=== PATIENT | female | born 1940 | race Caucasian/White ===

== ENCOUNTER → 2025-03-11 | Outpatient (CLI) | payer MEDICARE, BC, SELFPAY ==
--- NOTE | 2025-03-11 09:59 | XR_ITS ---
Examination: AP lateral chest 2 views TECHNIQUE: AP lateral chest 2 views upright Date and time: March 11, 2025 1012 hours Comparison February 10, 2024 INDICATIONS: Patient fell 3 weeks ago with injury of the chest, chest pain FINDINGS: Mild prominence left ventricle No pneumothorax Prominent osteopenia Clavicles and ribs appear intact Multiple chronic osteoporotic compressions dorsal vertebral bodies IMPRESSION: No pneumothorax
[2025-03-11 11:21] LABS: Basophils # (Auto) 0.1 Thou/mm3 (0.0-0.2); Basophils % (Auto) 1 % (0-2.5); Eosinophils # (Auto) 0.3 Thou/mm3 (0.0-0.5); Eosinophils % (Auto) 5 % (0-10); Hematocrit 36.9 % (36.0-46.0); Hemoglobin 12.5 g/dL (12.0-16.0); Immature Granulocytes % (Auto) 0 % (0-0); Immature Granulocytes Auto 0.02 Thou/mm3 (0.00-0.00); Lymphocytes # (Auto) 1.3 Thou/mm3 (1.0-4.8); Lymphocytes % (Auto) 24 % (10-50); Mean Corpuscular HGB Conc 33.9 g/dl (31.0-37.0); Mean Corpuscular Hemoglobin 32.9 pg (25.0-35.0); Mean Corpuscular Volume 97 fL (80-100); Monocytes # (Auto) 0.7 Thou/mm3 (0.0-0.8); Monocytes % (Auto) 12 % (0-12); Neutrophils # (Auto) 3.3 Thou/mm3 (1.8-7.7); Neutrophils % (Auto) 58 % (37-80); Nucleated Red Blood Cell % 0 /100 WBC (0); Platelet Count 290 Thou/mm3 (140-440); RDW Standard Deviation 53.7 fL (36.4-46.3); White Blood Count 5.7 Thou/mm3 (3.6-11.0)
[2025-03-11 11:37] LABS: Alanine Aminotransferase 17 U/L (10-49); Albumin, Serum 4.1 gm/dL (3.4-4.8); Albumin/Globulin Ratio 1.7 (1.2-2.2); Alkaline Phosphatase 99 U/L (46-116); Anion Gap 12 (7-16); Aspartate Amino Transferase 28 U/L (0-34); BUN/Creatinine Ratio 17 Ratio (12-20); Bilirubin,Total 0.5 mg/dL (0.3-1.2); Blood Urea Nitrogen 38 mg/dL (9-23); Calcium 9.5 mg/dL (8.3-10.6); Calcium (Corrected) 9.5 mg/dL (8.5-10.1); Carbon Dioxide 23.3 mMol/L (20.0-31.0); Cardiac Risk Estimate 3.7 RATIO (3.7-5.6); Chloride 108 mMol/L (98-107); Cholesterol 196 mg/dL (132-200); Creatinine (Component) 2.3 mg/dL (0.6-1.3); Globulin 2.4 gm/dL (2.3-3.5); Glucose 115 mg/dL (74-106); HDL Cholesterol 53 mg/dL (40-60); LDL Cholesterol,Calculated 97 mg/dL (0-130); Osmolality,Calculated 294 (275-295); Sodium 143 mMol/L (136-145); Thyroid Stimulating Hormone 3.62 uIU/mL (0.55-4.78); Total Protein 6.5 gm/dL (5.7-8.2); Triglycerides 229 mg/dL (30-150); eGFR 20 See Note
== END | disposition home or self-care (01) ==
LOC: COPL 09:39
PROVIDERS: PCP Family Medicine; Referring Provider Family Medicine; Visit Provider Family Medicine
DX: I25.10 Atherosclerotic heart disease of native coronary artery without angina pectoris (principal); R07.89 Other chest pain
CPT/HCPCS: 36415; 71046; 80053; 80061; 84443; 85025

== ENCOUNTER → 2025-05-03 | Outpatient (CLI) | payer MEDICARE, BC, SELFPAY ==
[2025-05-03 08:37] LABS: Collection Type, Urine Clean Catch
[2025-05-03 09:09] LABS: Bilirubin,Urine Negative (Negative); Blood,Urine Negative (Negative); Clarity,Urine Clear (Clear/Hazy); Color,Urine Lt-Yellow (Lt Yel-Yel); Glucose, Urine Negative (Negative); Ketones,Urine Negative (Negative); Leukocyte Esterase,Urine Positive (Negative); Nitrite,Urine Negative (Negative); PH,Urine 6.0 (5.0-7.0); Protein,Urine Negative (Neg - Trace); RBC,Urine 1 /hpf (0-3); Specific Gravity,Urine 1.016 (1.001-1.035); Squamous Epithelial Cell,Urine 1 /hpf (0-5); Urobilinogen,Urine Negative mg/dL (0.0-1.0); WBC,Urine 4 /hpf (0-5)
[2025-05-03 09:19] LABS: Anion Gap 11 (7-16); BUN/Creatinine Ratio 17 Ratio (12-20); Blood Urea Nitrogen 31 mg/dL (9-23); Calcium 10.0 mg/dL (8.3-10.6); Carbon Dioxide 26.7 mMol/L (20.0-31.0); Chloride 105 mMol/L (98-107); Creatinine (Component) 1.8 mg/dL (0.6-1.3); Glucose 100 mg/dL (74-106); Osmolality,Calculated 291 (275-295); Potassium 4.6 mMol/L (3.4-5.1); Sodium 143 mMol/L (136-145); Uric Acid 7.2 mg/dL (3.1-7.8); eGFR 27 See Note
== END | disposition home or self-care (01) ==
LOC: COPL 06:59
PROVIDERS: PCP Family Medicine; Referring Provider Family Medicine; Visit Provider Family Medicine
DX: N18.4 Chronic kidney disease, stage 4 (severe) (principal)
CPT/HCPCS: 36415; 80048; 81001; 84550

== ENCOUNTER → 2025-06-14 | Outpatient (CLI) | payer MEDICARE, BC, SELFPAY ==
[2025-06-14 08:52] LABS: Anion Gap 10 (7-16); BUN/Creatinine Ratio 17 Ratio (12-20); Blood Urea Nitrogen 33 mg/dL (9-23); Calcium 10.1 mg/dL (8.3-10.6); Carbon Dioxide 27.4 mMol/L (20.0-31.0); Chloride 107 mMol/L (98-107); Creatinine (Component) 1.9 mg/dL (0.6-1.3); Glucose 97 mg/dL (74-106); Osmolality,Calculated 294 (275-295); Potassium 5.1 mMol/L (3.4-5.1); Sodium 144 mMol/L (136-145); eGFR 26 See Note
== END | disposition home or self-care (01) ==
LOC: COPL 07:21
PROVIDERS: PCP Family Medicine; Referring Provider Family Medicine; Visit Provider Family Medicine
DX: N18.4 Chronic kidney disease, stage 4 (severe) (principal)
CPT/HCPCS: 36415; 80048

== ENCOUNTER → 2025-08-24 | Outpatient (CLI) | payer MEDICARE, BC, SELFPAY ==
[2025-08-24 08:40] LABS: Basophils # (Auto) 0.1 Thou/mm3 (0.0-0.2); Basophils % (Auto) 1 % (0-2.5); Eosinophils # (Auto) 0.3 Thou/mm3 (0.0-0.5); Eosinophils % (Auto) 4 % (0-10); Hematocrit 37.7 % (36.0-46.0); Hemoglobin 12.1 g/dL (12.0-16.0); Immature Granulocytes Auto 0.02 Thou/mm3 (0.00-0.00); Lymphocytes # (Auto) 1.1 Thou/mm3 (1.0-4.8); Lymphocytes % (Auto) 14 % (10-50); Mean Corpuscular HGB Conc 32.1 g/dl (31.0-37.0); Mean Corpuscular Hemoglobin 32.6 pg (25.0-35.0); Mean Corpuscular Volume 102 fL (80-100); Monocytes # (Auto) 0.8 Thou/mm3 (0.0-0.8); Monocytes % (Auto) 11 % (0-12); Neutrophils # (Auto) 5.2 Thou/mm3 (1.8-7.7); Neutrophils % (Auto) 69 % (37-80); Nucleated Red Blood Cell # 0.00 Thou/mm3 (0.00-0.00); Nucleated Red Blood Cell % 0 /100 WBC (0); Platelet Count 276 Thou/mm3 (140-440); RDW Standard Deviation 53.3 fL (36.4-46.3); Red Blood Count 3.71 Miln/mm3 (4.00-5.20); White Blood Count 7.6 Thou/mm3 (3.6-11.0)
[2025-08-24 09:19] LABS: Anion Gap 9 (7-16); BUN/Creatinine Ratio 19 Ratio (12-20); Blood Urea Nitrogen 25 mg/dL (9-23); Calcium 9.3 mg/dL (8.3-10.6); Carbon Dioxide 29.9 mMol/L (20.0-31.0); Chloride 106 mMol/L (98-107); Creatinine (Component) 1.3 mg/dL (0.6-1.3); Glucose 96 mg/dL (74-106); Osmolality,Calculated 293 (275-295); Potassium 4.6 mMol/L (3.4-5.1); Sodium 145 mMol/L (136-145); eGFR 40 See Note
== END | disposition home or self-care (01) ==
LOC: COPL 08:01
PROVIDERS: PCP Family Medicine; Referring Provider Family Medicine; Visit Provider Family Medicine
DX: N18.4 Chronic kidney disease, stage 4 (severe) (principal)
CPT/HCPCS: 36415; 80048; 85025

== ENCOUNTER 2025-09-09 11:25 | Emergency (ER) | payer MEDICARE, BC, SELFPAY ==
[2025-09-09] VITALS (11 sets, daily range): BP systolic 121–154; BP diastolic 67–90; PULSE 67–92; RESP 17–85; TEMP 36.4–37.1; O2SAT 95–99; BMI 18.5
--- NOTE | 2025-09-09 11:29 | XR_ITS ---
EXAMINATION: AP chest single view TECHNIQUE: AP portable semiupright chest single view Date and time: September 09, 2025, 1155 hours INDICATIONS: Patient fell last week with right hip pain FINDINGS: Mild enlargement cardiac contour Moderate vascular congestion Focal lung opacity in the right midlung Significant osteopenia IMPRESSION: Focal opacity in the right midlung which may represent pneumonia, follow-up imaging is recommended to document clearing
--- NOTE | 2025-09-09 11:31 | EKG_ITS ---
[facility] Test Date: 2025-09-09 Pat Name: ELMO SHINE Department: Room: - Gender: Female First Aid Officer: : 1940 Requested By: Marialuisa Heller Order Number: [id number] Reading MD: Marialuisa Heller Measurements Intervals Evans Rate: 70 P: IL: QRS: 26 QRSD: 90 T: 84 QT: 400 QTc: 434 Interpretive Statements ATRIAL FIBRILLATION POSSIBLE RIGHT VENTRICULAR CONDUCTION DELAY [RSR (QR) IN V1/V2] NONSPECIFIC ST & T-WAVE ABNORMALITY ABNORMAL RHYTHM ECG Compared to ECG 08/06/2024 09:33:50 T-wave abnormality now present Sinus rhythm no longer present ST (T wave) deviation no longer present /store/S0/[id number]/ecg/[id number].pdf
--- NOTE | 2025-09-09 11:34 | PD.EDFALL ---
ED Fall Injury RME/HPI General Chief Complaint: Hip Injury/Pain Stated Complaint: HIP PAIN AFTER GROUND LEVEL FALL Time Seen by Provider: 09/09/25 11:29 Arrival date/time: 09/09/25 11:25 Limitations: no limitations RME / HPI RME / HPI Narrative: 85 year old female with history of angina, hypertension, hyperlipidemia, DVT on Eliquis, COPD presents to the ED BIBA from home for evaluation of right hip pain after fall 1 week ago. The right hip pain described as aching in sensation that is aggravated with movements, ambulating, or bearing weight. States at home she has been able to get around with assistance of a walker though reports it has been very painful and difficult. During her fall 1 week ago states she did bump her head. Has not had any headache or other complaints. Related Data Home Medications ?Medication ?Instructions ?Recorded ?Confirmed atorvastatin 20 mg tablet 20 mg PO QDAY 10/07/19 08/09/24 fluticasone fur. 100 mcg-umeclid 1 inh inhalation QDAY 10/07/19 08/09/24 62.5 mcg-vilant 25 mcg inhalat.powder (Trelegy Ellipta) valsartan 160 1 tab PO QDAY 10/07/19 08/09/24 mg-hydrochlorothiazide 25 mg tablet apixaban 2.5 mg tablet (Eliquis) 2.5 mg PO BID 08/09/24 08/09/24 Held on 08/09/24. Instructions: Resume on 08/11/24. aspirin 81 mg tablet 81 mg PO QDAY 08/09/24 08/09/24 famotidine 40 mg tablet 40 mg PO QDAY 08/09/24 08/09/24 metoprolol succinate 100 mg 100 mg PO QDAY 08/09/24 08/09/24 tablet,extended release 24 hr Allergies Allergy/AdvReac Type Severity Reaction Status Date / Time Sulfa (Sulfonamide Allergy Unknown Verified 06/16/23 02:52 Antibiotics) Penicillins Allergy Rash Verified 10/07/19 09:14 Review of Systems Review of Systems Systems Reviewed: All systems reviewed, normal except as documented Past Medical History Past Medical History CARDIAC: Positive Hypercholesterolemia, Valvular Heart Disease (valve replacement) and Hypertension RESPIRATORY: Positive Chronic Obstructive Pulmonary Disease (COPD) and Bronchitis GASTROINTESTINAL: Positive Gastroesophageal Reflux Disease MUSCULOSKELETAL: Positive Arthritis and Fractures (back fx, right arm, right wrist) ENT: Positive History of ENT Problems (wears glasses) and Cataracts OTHER HISTORY: Positive Falls and Blood Transfusions Surgical History SURGICAL: Positive Cardiac Surgery (aortobifemoral bypass), Open Heart Surgery, Valve Replacement, Eye Surgery and Hysterectomy Social History SMOKING STATUS: Former smoker ED Exam General Limitations: Present no limitations General appearance: Present alert and in no apparent distress Head Head exam: Present atraumatic, normocephalic and normal inspection Eye Eye exam: Present normal appearance, PERRL and EOMI ENT ENT exam: Present normal exam, normal oropharynx and mucous membranes moist Neck Neck exam: Present normal inspection, full ROM and trachea midline Chest Chest inspection: Present normal inspection and symmetric chest wall rise Respiratory Respiratory exam: Present normal lung sounds bilaterally Cardiovascular Cardiovascular exam: Present regular rate, normal rhythm and normal heart sounds Abdominal Exam Abdominal exam: Present soft and normal bowel sounds Extremities Exam Extremities exam: Present full ROM and other (tenderness to the right hip anteriorly and lateraly, also tender with rotation, no shortening ) Back Exam Back exam: Present normal inspection and full ROM Neurological Exam Neurological exam: Present alert, oriented X3 and CN II-XII intact Psychiatric Psychiatric exam: Present normal affect and normal mood Skin Skin exam: Present warm, dry, intact and normal color Course Quality Measures none Orders Category Date Time Status Nursery Hand Q4H START 00 Care 09/09/25 12:34 Active EKG (ED ONLY) *Do not use* NOW Care 09/09/25 11:31 Completed MRI Screening NOW Care 09/09/25 22:33 Active Saline [Insert IV] NOW Care 09/09/25 18:[address] head/brain wo con Stat Exams 09/09/25 11:[address] hip RT wo con Stat Exams 09/09/25 16:30 Completed CXRP [XR chest 1V portable] Stat Exams 09/09/25 11:29 Completed EKG (ED Only) Stat Exams 09/09/25 11:31 Draft MR hip RT wo con Stat Exams 09/10/25 Ordered XR hip RT w pelvis 2-3V Stat Exams 09/09/25 12:10 Completed BNP [B-Type Natriuretic Peptide] Stat Lab 09/09/25 12:20 Completed CBC [CBC] Stat Lab 09/09/25 12:20 Completed CMP [Comprehensive Metabolic Panel] Stat Lab 09/09/25 12:20 Completed D-Dimer Stat Lab 09/09/25 12:20 Completed INR [Prothrombin Time with INR] Stat Lab 09/09/25 12:20 Completed Troponin I Stat Lab 09/09/25 12:20 Completed Troponin I Stat Lab 09/09/25 18:36 Completed UA [Urinalysis] Stat Lab 09/09/25 14:05 Completed Azithromycin Po [Zithromax PO] Med 09/09/25 18:35 Discontinued 500 mg PO X1 ONE Furosemide Inj [Lasix Inj] Med 09/09/25 18:35 Discontinued 20 mg IVP X1 ONE Morphine* Inj Med 09/09/25 11:31 Active 4 mg IVP Q1H PRN Nitroglycerin Oint 2% [Nitro-paste Oint 2%] Med 09/09/25 18:35 Discontinued 1 inch TOP X1 ONE Sodium Chloride 0.9% 500 ml [Ns] 500 ml Med 09/09/25 11:32 Discontinued IV 500 mls/hr cefTRIAXone/D5w 1gm IV premix [Rocephin/D5w 1gm IV Med 09/09/25 18:35 Discontinued premix] 1 gm in 50 ml IV X1 Oxygen Delivery NOW RT 09/09/25 12:34 Active Vital Signs Vital signs: Vital Signs Temperature 98.5 F 09/09/25 12:23 Pulse Rate 71 09/09/25 12:23 Respiratory Rate 22 H 09/09/25 12:23 Blood Pressure 150/80 H 09/09/25 12:23 Pulse Oximetry (%) 97 09/09/25 12:23 Oxygen Delivery Method Room Air 09/09/25 12:23 Pulse ox is 97% on room air which is adequate. Fall MDM Narrative MDM Narrative:: Cassy Meyer am scribing for and in the presence of Dr. Bennett. 85 year old female with history of angina, hypertension, hyperlipidemia, DVT on Eliquis, COPD presents to the ED BIBA from home for evaluation of right hip pain after fall 1 week ago. The right hip pain described as aching in sensation that is aggravated with movements, ambulating, or bearing weight. States at home she has been able to get around with assistance of a walker though reports it has been very painful and difficult. During her fall 1 week ago states she did bump her head. Has not had any headache or other complaints. Assessment: Ground level fall 1 week ago Atrial fibrillation, rule out cardiac cause for the fall Right hip pain, rule out fracture Plan: Head CT Hip Xrays Labs, cardiac work-up The patients head CT, chest xray are negative. The hip xray is suspicious for intertrochanteric fracture. The CT hip is pending. Labs show elevated troponin and BNP, which is the probable cause of fall. Patient will need admission for cardiac work up. 1800p: Care signed out to Dr. Lombardo pending CT of the hip and final disposition. Patient data External records reviewed:: [facility] previous records and EMS form Clinical information provided by:: patient and EMS Social determinants that could affect healthcare access:: none Patient has the following chronic illnesses:: angina, hypertension, hyperlipidemia, DVT on Eliquis, COPD How is presenting disease/condition affected by chronic disease/condition?: exacerbated by Evaluation data The following diagnostics were reviewed and interpreted by me:: lab results, radiology exam(s) and EKG tracing(s) (EKG @ 12:41 pm, interpreted by me, atrial fibrillation, rate 70, no STEMI. ) Lab and/or radiology exams considered but not ordered:: None Interpretation Summary: Ordering Physician: Marialuisa Heller MD Date of Service: 09/09/25 Procedure(s): XR chest 1V portable Accession Number(s): [id number] cc: Marialuisa Heller MD; Gustavo Mendoza MD~ EXAMINATION: AP chest single view TECHNIQUE: AP portable semiupright chest single view Date and time: September 09, 2025, 1155 hours INDICATIONS: Patient fell last week with right hip pain FINDINGS: Mild enlargement cardiac contour Moderate vascular congestion Focal lung opacity in the right midlung Significant osteopenia IMPRESSION: Focal opacity in the right midlung which may represent pneumonia, follow-up imaging is recommended to document clearing Dictated By: Gustavo Mendoza MD Signed By: <Electronically signed by Gustavo Mendoza MD in OV> 09/09/25 1347 Ordering Physician: Marialuisa Heller MD Date of Service: 09/09/25 Procedure(s): CT head/brain wo con Accession Number(s): [id number] cc: Marialuisa Heller MD; Gustavo Mendoza MD~ Examination: CT brain head without contrast. 2-D sagittal coronal reconstructions Date and time of exam: September 01, 2025, 1143 hours INDICATIONS: Patient fell today with injury to the head, head pain CTDI: vol (mGy): 44.5 DLP: (mGycm): 959 Technique: Multiple CT axial sections of the brain have been obtained, 5 mm slice thickness. Contrast has not been administered. 2-D sagittal, coronal reconstructions have been obtained Low dose protocols were performed. One or more of the following dose reduction techniques were used; automated exposure control, adjustment of the mA and/or KV according to patient size, use of iterative reconstruction technique. Findings: No significant ventricular enlargement. Intra-axial or extra-axial hemorrhage density is not seen. No mass effect or midline shift Basal cisterns are not remarkable. Fourth ventricle is midline. Cranial vault intact. Impression: Negative for acute hemorrhage, mass effect or midline shift Dictated By: Gustavo Mendoza MD Signed By: <Electronically signed by Gustavo Mendoza MD in OV> 09/09/25 1155 Ordering Physician: Marialuisa Heller MD Date of Service: 09/09/25 Procedure(s): XR hip RT w pelvis 2-3V Accession Number(s): [id number] cc: Marialuisa Heller MD; Gustavo Mendoza MD~ Examination: Right hip AP, lateral, AP pelvis 3 views Technique: Hip AP lateral, AP pelvis, 3 views Exam date and time: September 01, 2025, 1148 hours INDICATIONS: Patient fell last week with injury of the right hip, right hip pain. FINDINGS: Severe osteopenia Suspicious for fractures through the greater trochanter and likely intertrochanteric region right hip Left hip bones of the pelvis intact IMPRESSION: Recommend CT scan right hip follow-up to exclude right hip fracture. Dictated By: Gustavo Mendoza MD Signed By: <Electronically signed by Gustavo Mendoza MD in OV> 09/09/25 1346 Medications / Prescriptions Medications or Prescriptions considered but not ordered:: None Medication administrations:: Medication Administration History Morphine Sulfate (Morphine Sulf Inj 4 Mg/Ml Vial) 4 mg IVP Q1H PRN PRN Reason: Angina Discontinued Medications Azithromycin (Azithromycin 250 Mg Tablet) 500 mg PO X1 ONE Stop: 09/09/25 18:36 Last Admin: 09/09/25 19:31 Dose: 500 mg Documented By: DANIEL Furosemide (Furosemide Inj 10 Mg/Ml 4ml Vial) 20 mg IVP X1 ONE Stop: 09/09/25 18:36 Last Admin: 09/09/25 19:50 Dose: 20 mg Documented By: DANIEL Sodium Chloride (Ns) 500 mls @ 500 mls/hr IV .Q1H ONE Stop: 09/09/25 12:31 Last Infusion: 09/09/25 13:16 Dose: Infused Documented By: Admin: 09/09/25 12:26 Dose: 500 mls/hr Documented By: JACKELIN Ceftriaxone Sodium/Dextrose (Rocephin/D5w 1gm Iv Premix) 1 gm in 50 mls @ 100 mls/hr IV X1 ONE Stop: 09/09/25 19:04 Last Infusion: 09/09/25 20:01 Dose: Infused Documented By: Admin: 09/09/25 19:31 Dose: 100 mls/hr Documented By: DANIEL Nitroglycerin (Nitroglycerin Oint 2% 1 Inch Packet) 1 inch TOP X1 ONE Stop: 09/09/25 18:36 Last Admin: 09/09/25 19:50 Dose: 1 inch Documented By: DANIEL See above Consultations Consultation(s) initiated? (list below): No Diagnosis Fall Differential Diagnosis: syncope Most likely diagnosis given after review of the tests above:: Elevated troponin Right hip pain Admission Indicated Admission indicated?: not indicated Explain why admission is indicated or not indicated:: Signed out pending CT Admission Request Was there a request for admission?: No Disposition Plan Disposition Plan: other (specify) (Signed out to Dr. Lombardo) Discharge Plan Prescriptions/Referrals Prescriptions/Med Rec: No Action atorvastatin 20 mg Tablet 20 mg PO QDAY valsartan-hydrochlorothiazide 160-25 mg Tablet 1 tab PO QDAY Trelegy Ellipta 100-62.5-25 mcg Blister With Device 1 inh INHALATION QDAY famotidine 40 mg Tablet 40 mg PO QDAY metoprolol succinate 100 mg Tablet Extended Release 24 Hr 100 mg PO QDAY aspirin 81 mg Tablet 81 mg PO QDAY Eliquis 2.5 mg Tablet 2.5 mg PO BID Referrals: Beverly Nichols MD [Primary Care Provider, Family Practice] - In 1 week Problem List Clinical Impression: Fracture of right hip, Pneumonia, CHF (congestive heart failure) Patient/Caregiver Discharge Instructions Print Language: Croatian
--- NOTE | 2025-09-09 12:10 | XR_ITS ---
Examination: Right hip AP, lateral, AP pelvis 3 views Technique: Hip AP lateral, AP pelvis, 3 views Exam date and time: September 01, 2025, 1148 hours INDICATIONS: Patient fell last week with injury of the right hip, right hip pain. FINDINGS: Severe osteopenia Suspicious for fractures through the greater trochanter and likely intertrochanteric region right hip Left hip bones of the pelvis intact IMPRESSION: Recommend CT scan right hip follow-up to exclude right hip fracture.
[2025-09-09] MEDS: SODIUM CHLORIDE 0.9% 500 ML 500 ML IV (12:26)
[2025-09-09 13:07] LABS: Basophils # (Auto) 0.1 Thou/mm3 (0.0-0.2); Basophils % (Auto) 1 % (0-2.5); Eosinophils # (Auto) 0.2 Thou/mm3 (0.0-0.5); Eosinophils % (Auto) 3 % (0-10); Hematocrit 40.6 % (36.0-46.0); Hemoglobin 12.9 g/dL (12.0-16.0); Immature Granulocytes Auto 0.02 Thou/mm3 (0.00-0.00); Lymphocytes # (Auto) 0.8 Thou/mm3 (1.0-4.8); Lymphocytes % (Auto) 11 % (10-50); Mean Corpuscular HGB Conc 31.8 g/dl (31.0-37.0); Mean Corpuscular Hemoglobin 32.3 pg (25.0-35.0); Mean Corpuscular Volume 102 fL (80-100); Monocytes # (Auto) 0.7 Thou/mm3 (0.0-0.8); Monocytes % (Auto) 10 % (0-12); Neutrophils # (Auto) 5.4 Thou/mm3 (1.8-7.7); Neutrophils % (Auto) 75 % (37-80); Nucleated Red Blood Cell # 0.00 Thou/mm3 (0.00-0.00); Nucleated Red Blood Cell % 0 /100 WBC (0); Platelet Count 335 Thou/mm3 (140-440); RDW Standard Deviation 50.4 fL (36.4-46.3); Red Blood Count 3.99 Miln/mm3 (4.00-5.20); White Blood Count 7.2 Thou/mm3 (3.6-11.0)
[2025-09-09 13:17] LABS: D-Dimer 2400 ng/mL (<600)
[2025-09-09 13:22] LABS: INR 1.2 (0.9-1.3); Prothrombin Time 12.4 Seconds (9.0-12.2)
[2025-09-09 13:29] LABS: B-Type Natriuretic Peptide 888 pg/mL (0-100)
[2025-09-09 13:35] LABS: Alanine Aminotransferase 10 U/L (10-49); Albumin, Serum 4.1 gm/dL (3.4-4.8); Albumin/Globulin Ratio 1.4 (1.2-2.2); Alkaline Phosphatase 131 U/L (46-116); Anion Gap 9 (7-16); Aspartate Amino Transferase 23 U/L (0-34); BUN/Creatinine Ratio 14 Ratio (12-20); Bilirubin,Total 0.5 mg/dL (0.3-1.2); Blood Urea Nitrogen 27 mg/dL (9-23); Calcium 9.3 mg/dL (8.3-10.6); Calcium (Corrected) 9.3 mg/dL (8.5-10.1); Carbon Dioxide 27.2 mMol/L (20.0-31.0); Chloride 106 mMol/L (98-107); Creatinine (Component) 1.9 mg/dL (0.6-1.3); Estimated Creatinine Clearance 14.7 mL/min (>60); Globulin 3.0 gm/dL (2.3-3.5); Glucose 113 mg/dL (74-106); Osmolality,Calculated 289 (275-295); Potassium 4.4 mMol/L (3.4-5.1); Sodium 142 mMol/L (136-145); Total Protein 7.1 gm/dL (5.7-8.2); eGFR 26 See Note
[2025-09-09 13:38] LABS: Troponin I 0.053 ng/mL (0.0-0.045)
[2025-09-09 14:19] LABS: Collection Type, Urine Clean Catch
[2025-09-09 14:35] LABS: Bilirubin,Urine Negative (Negative); Blood,Urine Negative (Negative); Clarity,Urine Clear (Clear/Hazy); Color,Urine Lt-Yellow (Lt Yel-Yel); Glucose, Urine Negative (Negative); Ketones,Urine Negative (Negative); Leukocyte Esterase,Urine Negative (Negative); Nitrite,Urine Negative (Negative); PH,Urine 7.0 (5.0-7.0); Protein,Urine Negative (Neg - Trace); RBC,Urine < 1 /hpf (0-3); Specific Gravity,Urine 1.012 (1.001-1.035); Squamous Epithelial Cell,Urine < 1 /hpf (0-5); Urobilinogen,Urine Negative mg/dL (0.0-1.0); WBC,Urine < 1 /hpf (0-5)
--- NOTE | 2025-09-09 16:30 | XR_ITS ---
Examination: CT right hip, without contrast. 2-D sagittal reconstructions. 2-D coronal reconstructions. 3-D reconstructions. Date and time of exam: September 01, 2025, 1758 hours INDICATION: Patient fell today with injury of the right hip, right hip pain CTDI: vol (mGy): 5.07 DLP: (mGycm): 174 Technique: Multiple 1.25 mm axial sections of the pelvis right hip have been obtained. 2-D sagittal and coronal reconstructions have been obtained. 3-D reconstructions have been obtained. Low dose protocols were performed. One or more of the following dose reduction techniques were used; automated exposure control, adjustment of the mA and/or KV according to patient size, use of iterative reconstruction technique. Findings: Acute fractures greater trochanter right hip No definite fracture lines extending through the intertrochanteric region No hip dislocation Bones of the pelvis left hip intact No pelvic hematoma IMPRESSION: Acute fracture greater trochanter right hip Incidental note dilated gallbladder and distal common bile duct, recommend hepatobiliary sonography follow-up As clinically warranted, MRI hip follow-up would best assess and exclude extension of the greater trochanter fracture extending into the intertrochanteric region
--- NOTE | 2025-09-09 18:30 | EDNOTE_ITS ---
Emergency Room Addendum Addendum Narrative: I took over the care from previous shift physician at 6 PM on 09/09/2025. See previous notes for complete H & P and ED course. I reviewed all diagnostic test results. My interpretation of the EKG is atrial fibrillation (70 bpm). My interpretation of the chest x-ray is opacity and increased vascular congestion. My interpretation of the right hip x-rays is equivocal for fracture. My review of the head CT report is NAD. My review of the right hip CT report is: Acute, nondisplaced fracture of the posterosuperior aspect of the right greater trochanter. Blood tests and urine tests remarkable for BNP 888, Cr 1.9, troponin 0.053, D- dimer 2400. Diagnoses include: Right hip fracture Pneumonia CHF Treatment here from me included: Rocephin 1 g IV Zithromax 500 mg PO Lasix 20 mg IV Topical NTG I discussed the case with [facility] orthopedic surgeon (Dr. Ortiz). About the presentation and exam and diagnostics and treatments here. And possible need of further care there. Recommended MRI of the right hip. If the fracture is isolated at greater trochanter, transfer is not indicated because surgery not necessary. At 6 AM on 09/10/2025, the care of the patient was transferred to Dr. Bennett. Osmani Lombardo MD
[2025-09-09 19:09] LABS: Troponin I 0.053 ng/mL (0.0-0.045)
[2025-09-09] MEDS: AZITHROMYCIN 250 MG TABLET 500 MG PO (19:31)
[2025-09-09] MEDS: cefTRIAXone/D5w 1gm IV premix 1 GM/50 ML BAG IV (19:31)
[2025-09-09] MEDS: NITROGLYCERIN OINT 2% 1 INCH PACKET TOP (19:50)
[2025-09-09] MEDS: FUROSEMIDE INJ 10 MG/ML 4ML VIAL 20 MG IVP (19:50)
--- NOTE | 2025-09-09 20:16 | PRELIM_ITS ---
CT scan of the right hip without intravenous contrast (axial sections with sagittal and coronal reformats); September 09, 2025 at 1748 hours Clinical History: Right hip pain, rule out fracture No prior study is available for comparison. Findings: The bones are osteopenic. Acute, nondisplaced fracture of the posterosuperior aspect of the right greater trochanter is seen (image 97/167, series 10). The rest of the bones are intact. No subluxation or dislocation. Mild degenerative changes of the hip joint noted. No significant joint effusion is seen. Chronic moderate compression deformity of the visualized L5 vertebra is seen. Note is made of moderate to marked degenerative changes of the visualized lumbar spine. The visualized muscles demonstrate mild diffuse fatty atrophy. Moderate to marked atheromatous vascular calcifications are seen. An 8 mm calcific density is seen superior to the right greater trochanter. Mild diffuse superficial soft tissue edema is seen. No focal fluid collection on this noncontrast study. The urinary bladder is markedly distended. Calcific densities are seen in the pelvis, likely representing phleboliths. Small to moderate amount of fecal material is seen in the large bowel and rectum. Partially imaged dilated gal lbladder as well as dilated distal common bile duct is seen in the visualized sections. Impression: 1. Acute, nondisplaced fracture of the posterosuperior aspect of the right greater trochanter. No subluxation or dislocation. 2. Partially imaged dilated gallbladder as well as dilated distal common bile duct in the visualized sections. Recommend clinical correlation and further evaluation with CT, as clinically indicated. 3. Other findings as described above. Report Electronically Signed By: Bi Harris 09/09/2025 8:16:25 PM [EST]
--- NOTE | 2025-09-09 22:19 | PC.NURSE ---
INITIATED a transfer request for ortho with Caleb Bai from transfer center on the phone with MD EMERY- stated they needed an MRI to see if fracture was isolated. MRI scheduled in the morning per MD EMERY
--- NOTE | 2025-09-10 | XR_ITS ---
Examination: MRI right hip without intravenous contrast. Date and time of exam: September 10, 2025, 0950 hours INDICATIONS: Right hip pain after ground-level fall yesterday Technique: Multiple MRI images of the right hip have been obtained T1 weighted coronal sections, TR 500, TE 12 Proton density coronal fat saturated images, TR 3000, TE 71 T2-weighted coronal images, 5850, TE 104 T1-weighted axial images, TR 521, TE 12 T2-weighted axial fat suppressed images, TR 5730, TE 103. Findings: Although the images are severely degraded by patient motion, especially the T2-weighted images Nondisplaced fractures greater trochanter right hip Coronal T1-weighted image 18 highly suspicious for nondisplaced intertrochanteric fracture right hip IMPRESSION: Study is severely limited secondary to patient motion Coronal T1-weighted image 18 highly suspicious for intertrochanteric fracture right hip
[2025-09-10 00:07] VITALS: BP 138/68; PULSE 69; RESP 19; TEMP 36.9; O2SAT 100
[2025-09-10 04:18] VITALS: BP 132/76; PULSE 76; RESP 21; TEMP 36.8; O2SAT 95
[2025-09-10 06:18] VITALS: BP 124/78; PULSE 88; RESP 20; TEMP 36.6; O2SAT 95
[2025-09-10 08:30] VITALS: BP 133/110; PULSE 84; RESP 20; TEMP 36.3; O2SAT 97
--- NOTE | 2025-09-10 10:28 | EDNOTE_ITS ---
Emergency Room Addendum Addendum Narrative: 0600: Care assumed from Dr. Lombardo, the previous shift emergency physician. Past medical, surgical, social and family history reviewed. Vitals and home medications reviewed. I will assume the care of the patient at this time, pending MRI. Please refer to the emergency department record for history and examination from initial visit.? 1228: Discussed test HPI, PMHx, lab, radiology results and/or management with orthopedic Dr. Ortega from [facility]. He accepted the patient for transfer. Final diagnosis: Right rip fracture, nondisplaced Results Objective Laboratory: Laboratory Last Values WBC 7.2 Thou/mm3 (3.6-11.0) 09/09/25 12:20 RBC 3.99 Miln/mm3 (4.00-5.20) L 09/09/25 12:20 Hgb 12.9 g/dL (12.0-16.0) 09/09/25 12:20 Hct 40.6 % (36.0-46.0) 09/09/25 12:20 MCV 102 fL (80-100) H 09/09/25 12:20 MCH 32.3 pg (25.0-35.0) 09/09/25 12:20 MCHC 31.8 g/dl (31.0-37.0) 09/09/25 12:20 RDW Std Deviation 50.4 fL (36.4-46.3) H 09/09/25 12:20 Plt Count 335 Thou/mm3 (140-440) D 09/09/25 12:20 Neut % (Auto) 75 % (37-80) 09/09/25 12:20 Lymph % (Auto) 11 % (10-50) 09/09/25 12:20 Bartholomew % (Auto) 10 % (0-12) 09/09/25 12:20 Eos % (Auto) 3 % (0-10) 09/09/25 12:20 Baso % (Auto) 1 % (0-2.5) 09/09/25 12:20 Neut # (Auto) 5.4 Thou/mm3 (1.8-7.7) 09/09/25 12:20 Lymph # (Auto) 0.8 Thou/mm3 (1.0-4.8) L 09/09/25 12:20 Bartholomew # (Auto) 0.7 Thou/mm3 (0.0-0.8) 09/09/25 12:20 Eos # (Auto) 0.2 Thou/mm3 (0.0-0.5) 09/09/25 12:20 Baso # (Auto) 0.1 Thou/mm3 (0.0-0.2) 09/09/25 12:20 Immature Gran # (Auto) 0.02 Thou/mm3 (0.00-0.00) H 09/09/25 12:20 Absolute Nucleated RBC 0.00 Thou/mm3 (0.00-0.00) 09/09/25 12:20 Immature Gran % 0 % (0-0) 09/09/25 12:20 Nucleated RBC % 0 /100 WBC (0) 09/09/25 12:20 PT 12.4 Seconds (9.0-12.2) H 09/09/25 12:20 INR 1.2 (0.9-1.3) 09/09/25 12:20 D-Dimer 2400 ng/mL (<600) H 09/09/25 12:20 Sodium 142 mMol/L (136-145) 09/09/25 12:20 Potassium 4.4 mMol/L (3.4-5.1) 09/09/25 12:20 Chloride 106 mMol/L (98-107) 09/09/25 12:20 Carbon Dioxide 27.2 mMol/L (20.0-31.0) 09/09/25 12:20 Anion Gap 9 (7-16) 09/09/25 12:20 BUN 27 mg/dL (9-23) H 09/09/25 12:20 Creatinine 1.9 mg/dL (0.6-1.3) H 09/09/25 12:20 Estim Creat Clear Calc 14.7 mL/min (>60) L 09/09/25 12:20 eGFR 26 See Note (60-) L 09/09/25 12:20 BUN/Creatinine Ratio 14 Ratio (12-20) 09/09/25 12:20 Glucose 113 mg/dL (74-106) H 09/09/25 12:20 Calculated Osmolality 289 (275-295) 09/09/25 12:20 Calcium 9.3 mg/dL (8.3-10.6) 09/09/25 12:20 Corrected Calcium 9.3 mg/dL (8.5-10.1) 09/09/25 12:20 Total Bilirubin 0.5 mg/dL (0.3-1.2) 09/09/25 12:20 AST 23 U/L (0-34) 09/09/25 12:20 ALT 10 U/L (10-49) 09/09/25 12:20 Alkaline Phosphatase 131 U/L (46-116) H 09/09/25 12:20 Troponin I 0.053 ng/mL (0.0-0.045) H* 09/09/25 18:36 B-Natriuretic Peptide 888 pg/mL (0-100) H* 09/09/25 12:20 Total Protein 7.1 gm/dL (5.7-8.2) 09/09/25 12:20 Albumin 4.1 gm/dL (3.4-4.8) 09/09/25 12:20 Globulin 3.0 gm/dL (2.3-3.5) 09/09/25 12:20 Albumin/Globulin Ratio 1.4 (1.2-2.2) 09/09/25 12:20 Ur Collection Type Clean Catch 09/09/25 14:05 Urine Color Lt-Yellow (Lt Yel-Yel) 09/09/25 14:05 Urine Clarity Clear (Clear/Hazy) 09/09/25 14:05 Urine pH 7.0 (5.0-7.0) 09/09/25 14:05 Ur Specific [place] 1.012 (1.001-1.035) 09/09/25 14:05 Urine Protein Negative (Neg - Trace) 09/09/25 14:05 Urine Glucose (UA) Negative (Negative) 09/09/25 14:05 Urine Ketones Negative (Negative) 09/09/25 14:05 Urine Blood Negative (Negative) 09/09/25 14:05 Urine Nitrite Negative (Negative) 09/09/25 14:05 Urine Bilirubin Negative (Negative) 09/09/25 14:05 Urine Urobilinogen (Auto) Negative mg/dL (0.0-1.0) 09/09/25 14:05 Ur Leukocyte Esterase Negative (Negative) 09/09/25 14:05 Urine RBC < 1 /hpf (0-3) 09/09/25 14:05 Urine WBC < 1 /hpf (0-5) 09/09/25 14:05 Ur Squamous Epith Cells < 1 /hpf (0-5) 09/09/25 14:05 Urine Bacteria None (None) 09/09/25 14:05 Imaging: Procedure(s): MR hip RT wo con Accession Number(s): [id number] cc: Osmani Lombardo MD; Gustavo Mendoza MD; Beverly Ricardo MD~ Examination: MRI right hip without intravenous contrast. Date and time of exam: September 10, 2025, 0950 hours INDICATIONS: Right hip pain after ground-level fall yesterday Technique: Multiple MRI images of the right hip have been obtained T1 weighted coronal sections, TR 500, TE 12 Proton density coronal fat saturated images, TR 3000, TE 71 T2-weighted coronal images, 5850, TE 104 T1-weighted axial images, TR 521, TE 12 T2-weighted axial fat suppressed images, TR 5730, TE 103. Findings: Although the images are severely degraded by patient motion, especially the T2-weighted images Nondisplaced fractures greater trochanter right hip Coronal T1-weighted image 18 highly suspicious for nondisplaced intertrochanteric fracture right hip IMPRESSION: Study is severely limited secondary to patient motion Coronal T1-weighted image 18 highly suspicious for intertrochanteric fracture right hip Dictated By: Gustavo Mendoza MD Critical Care Time Critical Care Time Critical Care Time: Yes Total Critical Care Time (min.): 45 Attestation: The high probability of sudden, clinically significant deterioration in the maritza ent?s condition required the highest level of my preparedness to intervene urgently. The services I provided to this patient were to treat and/or prevent clinically significant deterioration. Services included the following: chart data review, reviewing nursing notes and/or old charts, documentation time, acura sales consultant collaboration regarding findings and treatment options, medication orders and ma nagement, direct patient care, vital sign assessments and ordering, interpreting and reviewing diagnostic studies and lab tests. Aggregate critical care time includes only time during which I was engaged in work directly related to the patient?s care, as described above, whether at bedside or elsewhere in the Emergency Department. It did not include time spent performing other reported procedures or the services of residents, students, nurses or physician assistants.
[2025-09-10 11:25] VITALS: BP 135/87; PULSE 84; RESP 18; TEMP 36.6; O2SAT 95
--- NOTE | 2025-09-10 12:13 | PC.CC ---
Addendum entered by Micah Dale RN 09/10/25 13:00: 1258: transport set up for 1345, informed bedside nurse Brenda. Called Esme ramos, informed Berkley of eta picker box operator. 1245: transfer packet given to ED FREDDIE Fleming 1234: Call GHADA RAMOS to cancel transfer request. spoke to Jenn. 1224: received call back from Berkley w/ DENISSE, she spoke to Dr Bennett for the Emtala questions. Peer to Peer between Dr Ortiz and Sudeep Fermin completed. Dr Ortiz accepted pt ED to ED at 1226. transfer packet and CD x1 created. Original Note: 1213: called GHADA ramos, spoke to Barb, she will review and call back. 1212: Called Esme ramos, spoke to Berkley, she will review and call back. 1208: clinicals and images sent to Esme and GHADA. 1201: received order for transfer for ortho for susp for intertrochanteric fracture right hip.
--- NOTE | 2025-09-10 13:03 | PC.NURSE ---
Report given to [facility] at [id number]
[2025-09-10 13:41] LABS: Troponin I 0.045 ng/mL (0.0-0.045)
== END 2025-09-10 13:23 | disposition short-term general hospital (02) ==
PROVIDERS: Emergency Medicine; Emergency Provider Emergency Medicine; PCP Family Medicine
DX: S72.114A Nondisplaced fracture of greater trochanter of right femur, initial encounter for closed fracture (principal); S09.90XA Unspecified injury of head, initial encounter; J18.9 Pneumonia, unspecified organism; I11.0 Hypertensive heart disease with heart failure; I48.91 Unspecified atrial fibrillation; I50.9 Heart failure, unspecified; W18.30XA Fall on same level, unspecified, initial encounter; Z79.01 Long term (current) use of anticoagulants; Z87.891 Personal history of nicotine dependence; Z75.1 Person awaiting admission to adequate facility elsewhere
CPT/HCPCS: 36415; 70450; 71045; 73502; 73700; 73721; 80053; 81001; 83880; 84484; 85025; 85379; 85610; 93005; 96361; 96365; 96375; 99285; J0696; J1938; J7999; A9270